=== PATIENT | female | born 1985 | race Caucasian/White ===

== ENCOUNTER 2016-11-18 06:36 | Day surgery (SDC) | payer OTHER ==
[~2016-11-18] VITALS: Ht 162.6 cm; Wt 68.0 kg
[~2016-11-18 06:36] MED LIST: DEPO-PROVER400 MG/ML IM; DICLOFENAC SODI75 MG PO; FLEXERIL PO; NAPROSYN500 MG PO
[2016-11-18 06:55] LABS: BARBITURATES NEGATIVE (NEGATIVE); COCAINE NEGATIVE (NEGATIVE); METHADONE NEGATIVE (NEGATIVE); OXCYCODONE NEGATIVE (NEGATIVE); TETRAHYDROCANNABIONOL POSITIVE (NEGATIVE); TRICYLIC ANTIDEPRESSANTS NEGATIVE (NEGATIVE)
[2016-11-18] MEDS ORDERED: LORTAB 7.57.5 MG PO (09:02)
[2016-11-18 11:10] VITALS: BP 112/65
== END 2016-11-18 10:06 | disposition home or self-care (01) | DRG 745 ==
LOC: ORM 06:36
PROVIDERS: ATTEND Obstetrics & Gynecology
PROC: 0UL74CZ Occlusion of Bilateral Fallopian Tubes with Extraluminal Device, Percutaneous Endoscopic Approach (ICD-10-PCS; principal; 2016-11-18)
DX: Z30.2 Encounter for sterilization (principal); F17.210 Nicotine dependence, cigarettes, uncomplicated; F12.90 Cannabis use, unspecified, uncomplicated
CPT/HCPCS: J2710